=== PATIENT | male | born 1995 | race Caucasian/White ===

== ENCOUNTER 2018-02-19 11:49 | Emergency (ER) | payer OTHER ==
[2018-02-19 11:52] VITALS: BMI 24.3
[2018-02-19 11:54] VITALS: BP 118/78; PULSE 56; RESP 17; TEMP 98.5; O2SAT 98
--- NOTE | 2018-02-19 12:27 | ED PDOC ---
HPI: General Adult Time Seen by Provider: 02/19/18 11:59 Chief Complaint (Nursing): Abdominal Pain Chief Complaint (Provider): Right Flank Pain History Per: Patient History/Exam Limitations: no limitations Onset/Duration Of Symptoms: Mins (x20 ) Current Symptoms Are (Timing): Better Severity: Mild Additional Complaint(s): 22 year old male with no significant past medical history presents to the ED complaining of right flank pain that started 20 minutes ago. Patient reports pain was severe at first but has now subsided to a mild constant pain without radiation. He states pain is not exacerbated by anything. Patient had one episode of pain with urination 2 days ago that resolved. At this time, he is nauseous, but denies dysuria, hematuria, vomiting, fever or any other medical complaints. PMD: none provided Past Medical History Reviewed: Historical Data, Nursing Documentation, Vital Signs Vital Signs: Last Vital Signs Temp 98.5 F 02/19/18 12:03 Pulse 56 L 02/19/18 12:03 Resp 17 02/19/18 12:03 BP 118/78 02/19/18 12:03 Pulse Ox 98 02/19/18 12:31 - Medical History PMH: No Chronic Diseases - Surgical History Surgical History: No Surg Hx - Family History Family History: States: No Known Family Hx - Allergies Allergies/Adverse Reactions: Allergies Allergy/AdvReac Type Severity Reaction Status Date / Time No Known Allergies Allergy Verified 02/19/18 12:03 Review of Systems ROS Statement: Except As Marked, All Systems Reviewed And Found Negative Constitutional: Negative for: Fever Gastrointestinal: Positive for: Nausea. Negative for: Vomiting Genitourinary Male: Positive for: Other (right flank pain ). Negative for: Dysuria, Hematuria Physical Exam - Reviewed Nursing Documentation Reviewed: Yes Vital Signs Reviewed: Yes - Physical Exam Appears: Positive for: Non-toxic, No Acute Distress Head Exam: Positive for: ATRAUMATIC, NORMOCEPHALIC Skin: Positive for: Normal Color, Warm, Dry Eye Exam: Positive for: EOMI, Normal appearance, PERRL ENT: Positive for: Normal ENT Inspection Neck: Positive for: Normal, Painless ROM Cardiovascular/Chest: Positive for: Regular Rate, Rhythm. Negative for: Murmur Respiratory: Positive for: Normal Breath Sounds. Negative for: Respiratory Distress Gastrointestinal/Abdominal: Positive for: Normal Exam, Soft. Negative for: Tenderness Extremity: Positive for: Normal ROM (upper and lower) Neurologic/Psych: Positive for: Alert, Oriented (x3), Gait (steady) - Laboratory Results Urine dip results: Positive for: Blood. Negative for: Leukocyte Esterase, Nitrate, Ketones, Glucose - ECG O2 Sat by Pulse Oximetry: 98 (RA) Pulse Ox Interpretation: Normal - Progress Re-evaluation Time: 13:00 Condition: Re-examined, Improved Medical Decision Making Medical Decision Making: Time: 1220 Initial Impression: right flank pain Differential diagnoses include but are not limited to: renal colic as in nephritis, additionally consider musculoskeletal pain and UTI Initial Plan: --Urine dip Urine dip with hematuria. Pain is completely resolved. At this time there are no criteria for further evaluation or treatment in ED. Scribe Attestation: Documented by Karishma Hamlin, acting as a scribe for Jarrett Donaldson MD Provider Scribe Attestation: All medical record entries made by the Scribe were at my direction and personally dictated by me. I have reviewed the chart and agree that the record accurately reflects my personal performance of the history, physical exam, medical decision making, and the department course for this patient. I have also personally directed, reviewed, and agree with the discharge instructions and disposition. Disposition - Clinical Impression Clinical Impression: Flank pain, Hematuria - Patient ED Disposition Is Patient to be Admitted: No Doctor Will See Patient In The: Office Counseled Patient/Family Regarding: Studies Performed, Diagnosis, Need For Followup - Disposition Referrals: [facility], located within [facility] [Outside] Disposition: Routine/Home Disposition Time: 13:00 Condition: GOOD Additional Instructions: Return for recurrent pain. Follow up with your PCP in 2-3 days. MALATHI DE LEÓN, thank you for letting us take care of you today. Your provider was Jarrett Donaldson MD and you were treated for FLANK PAIN. The emergency medical care you received today was directed at your acute symptoms. If you were prescribed any medication, please fill it and take as directed. It may take several days for your symptoms to resolve. Return to the Emergency Department if your symptoms worsen, do not improve, or if you have any other problems. Please contact your doctor or call one of the physicians/clinics you have been referred to that are listed on the Patient Visit Information form that is included in your discharge packet. Bring any paperwork you were given at discharge with you along with any medications you are taking to your follow up visit. Our treatment cannot replace ongoing medical care by a primary care provider outside of the emergency department. Thank you for allowing the [facility] team to be part of your care today. If you had an X-Ray or CT scan: A Radiologist will review the ED reading if any change in treatment is needed we will contact you. If you had a blood, urine, or wound culture: It will take several days for the results, if any change in treatment is needed we will contact you. If you had an STI test: It will take 48 hours for the results. Please call after 1 week if you have not heard back. Instructions: Renal Colic
== END 2018-02-19 13:44 | disposition home or self-care (01) ==
LOC: H.ER 11:49
DX: R10.9 Unspecified abdominal pain (principal); R31.9 Hematuria, unspecified